=== PATIENT | female | born 1960 | race Caucasian/White ===

== ENCOUNTER 2016-09-25 14:28 | Emergency (ER) | payer SELFPAY ==
[~2016-09-25] VITALS: Ht 170.2 cm; Wt 48.1 kg
[~2016-09-25 14:28] MED LIST: NAPR500T8 PO; TRAM50TA PO
[2016-09-25 15:30] VITALS: BP 114/54
[2016-09-25] MEDS ORDERED: NAPROXEN 500 MG TABLET PO STA (15:47)
[2016-09-25] MEDS ORDERED: HYDROCODONE/APAP 7.5/325MG TABLET. PO ONE (16:00)
[2016-09-25] MEDS ORDERED: METH4TAB2 PO (16:00)
[2016-09-25] MEDS ORDERED: HYDR-971 PO (16:00)
[2016-09-25] MEDS ORDERED: CYCLOBENZAPRINE 10 MG TABLET. PO ONE (16:00)
[2016-09-25] MEDS ORDERED: CYCL10TA2 PO (16:00)
--- NOTE | 2016-09-25 16:01 | PHYS DOC ---
Past Medical History Past Medical History: Kidney Stone, Other Additional Past Medical Histor: chronic back pain, sciatica Past Surgical History: Other Additional Past Surgical Histo: nephrectomy Alcohol Use: None Drug Use: Marijuana Adult General Chief Complaint Chief Complaint: BACK PAIN OR INJURY HPI HPI Patient is a 56 year old female with history of kidney stones and chronic low back pain who presents today with chronic low back pain radiating to bilateral lower extremities, patient denies any injury. Patient denies any loss of bowel bladder function. She states she has an appointment with [facility] in one and a half months. She is currently on tramadol and Flexeril which she states is not helping much for this pain. Review of Systems Review of Systems Constitutional: Denies fever or chills [] Eyes: Denies change in visual acuity, redness, or eye pain [] GI: Denies abdominal pain, nausea, vomiting, bloody stools or diarrhea [] : Denies dysuria or hematuria [] Musculoskeletal: Bilateral low back pain radiating to bilateral lower extremities Integument: Denies rash or skin lesions [] Neurologic: Denies headache, focal weakness or sensory changes [] Endocrine: Denies polyuria or polydipsia [] Current Medications Current Medications Current Medications Medications (Trade) Dose Ordered Sig/Rj Start Time Stop Time Status Last Admin Dose Admin Acetaminophen/ Hydrocodone Bitart (Lortab 7.5/325) 2 tab 1X ONCE 09/25/16 16:00 09/25/16 16:01 Cyclobenzaprine HCl (Flexeril) 10 mg 1X ONCE 09/25/16 16:00 09/25/16 16:01 Naproxen (Naprosyn) 500 mg 1X STAT 09/25/16 15:47 09/25/16 15:51 DC Allergies Allergies Allergies Coded Allergies Type Severity Reaction Last Updated Verified No Known Drug Allergies 11/17/13 No Physical Exam Physical Exam Constitutional: Well developed, well nourished, no acute distress, non-toxic appearance. [] Abdomen: Bowel sounds normal, soft, no tenderness, no masses, no pulsatile masses. [] Skin: Warm, dry, no erythema, no rash. [] Back: Diffuse paraspinal muscles tenderness to bilateral lower lumbar region, no midline tenderness, no CVA tenderness. [] Extremities: No tenderness, no cyanosis, no clubbing, ROM intact, no edema. [] Neurologic: Alert and oriented X 3, normal motor function, normal sensory function, no focal deficits noted. [] Psychologic: Affect normal, judgement normal, mood normal. [] Current Patient Data Vital Signs Vital Signs Date Time Temp Pulse Resp B/P Pulse Ox O2 Delivery O2 Flow Rate FiO2 09/25/16 15:30 98.3 77 18 98 Room Air 98.3 EKG EKG [] Radiology/Procedures Radiology/Procedures [] Course & Med Decision Making Course & Med Decision Making Pertinent Labs and Imaging studies reviewed. (See chart for details) Patient is in the ED with exacerbation of chronic back pain. She has an appointment with the [facility] In one and a half months. She was provided instructions to make sure she follows up. She was provided return precautions and discharged in stable condition. Kostas Disclaimer Kostas Disclaimer This electronic medical record was generated, in whole or in part, using a voice recognition dictation system. Departure Departure Impression: Primary Impression: Acute exacerbation of chronic low back pain Additional Impression: Sciatica Disposition: HOME, SELF-CARE Condition: STABLE Referrals: NO PCP (PCP) follow up with [facility] as soon as you can Patient Instructions: Sciatica, [id number] Additional Instructions: You were seen for chronic sciatic/back pain. Follow-up with your own doctor as soon as he can. Come back to the ED for any worsening condition or loss of bowel bladder function. Scripts Methylprednisolone (Medrol)4 Mg Tab.ds.pk1 Pkg PO UD #1 PKG Prov:MARIUSZ OH APRN 09/25/16 Cyclobenzaprine Hcl 10 Mg Tablet1 Tab PO TID #30 TAB Prov:MARIUSZ OH APRN 09/25/16 Hydrocodone/Apap 5-325 ([place] 5-325 Tablet)1 Each Tablet1-2 Tab PO Q4-6HRS #20 TAB Prov:MARIUSZ OH APRN 09/25/16 Problem Qualifiers Additional Impression: Sciatica Laterality: bilateral Qualified Code: M54.31 - Sciatica, right side MARIUSZ OH YVAN Sep 25, 2016 16:01
== END 2016-09-25 16:12 | disposition home or self-care (01) ==
LOC: ER 14:28
DX: G89.29 Other chronic pain (principal); M54.41 Lumbago with sciatica, right side; M54.42 Lumbago with sciatica, left side; F12.10 Cannabis abuse, uncomplicated; Z87.442 Personal history of urinary calculi; Z90.5 Acquired absence of kidney
CPT/HCPCS: 99284

== ENCOUNTER 2016-10-19 14:54 | Emergency (ER) | payer SELFPAY ==
[~2016-10-19] VITALS: Ht 167.6 cm; Wt 44.0 kg
[~2016-10-19 14:54] MED LIST changes: +CYCL10TA2 PO; +HYDR-971 PO; +METH4TAB2 PO
[2016-10-19 15:01] VITALS: BP 92/60
[2016-10-19] MEDS ORDERED: methylPREDNISolone SOD SUCC PF 125 MG/2 ML VIAL. IM ONE (15:30)
[2016-10-19] MEDS ORDERED: CYCLOBENZAPRINE 10 MG TABLET. PO ONE (15:30)
[2016-10-19] MEDS ORDERED: HYDROCODONE/APAP 5/325MG TABLET. PO ONE (15:30)
[2016-10-19] MEDS ORDERED: NAPROXEN 500 MG TABLET PO ONE (15:30)
--- NOTE | 2016-10-19 15:33 | PHYS DOC ---
Past Medical History Past Medical History: Kidney Stone, Other Additional Past Medical Histor: chronic back pain, sciatica Past Surgical History: Other Additional Past Surgical Histo: nephrectomy Additional Information: 1 PPD Alcohol Use: None Drug Use: Marijuana Adult General Chief Complaint Chief Complaint: BACK PAIN OR INJURY [facility] HPI Patient is a 56 year old female presents to the emergency department stating that she has a history of chronic back pain, history of kidney stones as well as a left nephrectomy. Patient states that she was seen here on 25 September for the same back pain and discomfort in which she was provided hydrocodone Flexeril in a Medrol Dosepak. Patient states she did not take the Medrol Dosepak as prescribed. Patient states that within the last 2-3 day she started having increased back pain and discomfort. She states that she does not have insurance and cannot go to see another physician so she came to the emergency department. She states that she does have an appointment in a month with [facility]. Patient denies any trauma or injuries to the back area. She denies any loss of bowel or bladder. She states that she has numbness and tingling in the toes on the left foot. She is able to ambulate with a good steady gait. Review of Systems Review of Systems Constitutional: Denies fever or chills [] Eyes: Denies change in visual acuity, redness, or eye pain [] HENT: Denies nasal congestion or sore throat [] Respiratory: Denies cough or shortness of breath [] Cardiovascular: No additional information not addressed in HPI [] GI: Denies abdominal pain, nausea, vomiting, bloody stools or diarrhea [] : Denies dysuria or hematuria [] Musculoskeletal: back pain denies joint pain [] Integument: Denies rash or skin lesions [] Neurologic: Denies headache, focal weakness or sensory changes [] Current Medications Current Medications Current Medications Medications (Trade) Dose Ordered Sig/Rj Start Time Stop Time Status Last Admin Dose Admin Acetaminophen/ Hydrocodone Bitart (Lortab 5/325) 1 tab 1X ONCE 10/19/16 15:30 10/19/16 15:31 DC 10/19/16 15:51 1 TAB Cyclobenzaprine HCl (Flexeril) 10 mg 1X ONCE 10/19/16 15:30 10/19/16 15:31 DC 10/19/16 15:51 10 MG Methylprednisolone Sodium Succinate (Solu-Medrol 125mg Vial) 125 mg 1X ONCE 10/19/16 15:30 10/19/16 15:31 DC 10/19/16 15:52 125 MG Naproxen (Naprosyn) 500 mg 1X ONCE 10/19/16 15:30 10/19/16 15:31 DC 10/19/16 15:51 500 MG Allergies Allergies Allergies Coded Allergies Type Severity Reaction Last Updated Verified No Known Drug Allergies 11/17/13 No Physical Exam Physical Exam Constitutional: Well developed, well nourished, no acute distress, non-toxic appearance. [] HENT: Normocephalic, atraumatic, bilateral external ears normal, oropharynx moist, no oral exudates, nose normal. [] Eyes: PERRLA, EOMI, conjunctiva normal, no discharge. [] Neck: Normal range of motion, no tenderness, supple, no stridor. [] Cardiovascular:Heart rate regular rhythm, no murmur [] Lungs & Thorax: Bilateral breath sounds clear to auscultation [] Skin: Warm, dry, no erythema, no rash. [] Back: left lower back tenderness, left CVA tenderness. [] Extremities: No tenderness, no cyanosis, no clubbing, ROM intact, no edema. Patient able to lift bilateral legs without distress noted, able to cross bilateral legs without distress, peripheral pulses 2+ cap refill brisk < 2 seconds. Patient is able to ambulate with good steady gate. Neurologic: Alert and oriented X 3, normal motor function, normal sensory function, no focal deficits noted. [] Psychologic: Affect normal, judgement normal, mood normal. [] Current Patient Data Vital Signs Vital Signs Date Time Temp Pulse Resp B/P Pulse Ox O2 Delivery O2 Flow Rate FiO2 10/19/16 15:51 Room Air 10/19/16 15:01 96.6 81 18 92/60 96 96.6 Lab Values Laboratory Tests Test 10/19/16 15:30 Urine Collection Type Unknown Urine Color Yellow Urine Clarity Cloudy Urine pH 5.5 Urine Specific [place] >=1.030 Urine Protein Negativemg/dL (NEG-TRACE) Urine Glucose (UA) Negativemg/dL (NEG) Urine Ketones (Stick) 15mg/dL (NEG) Urine Blood Small (NEG) Urine Nitrite Negative (NEG) Urine Bilirubin Small (NEG) Urine Urobilinogen Dipstick 1.0mg/dL (0.2 mg/dL) Urine Leukocyte Esterase Small (NEG) Urine RBC 3-5/HPF (0-2) Urine WBC 5-10/HPF (0-4) Urine Squamous Epithelial Cells Many/LPF Urine Bacteria 0/HPF (0-FEW) Urine Mucus Marked/LPF EKG EKG [] Radiology/Procedures Radiology/Procedures [] Course & Med Decision Making Course & Med Decision Making Pertinent Labs and Imaging studies reviewed. (See chart for details) Patient is a noncompliant patient. She was provided with medications here in the emergency department for back pain. Patient does state she has an appointment next month with [facility]. Encouraged her to call [facility] and ask for the first available as well. Patient chart was positive for urinary tract infection. She'll be discharged home on Macrobid. Provide patient with some prednisone 40 mg daily for the next 5 days. We'll provide her with Flexeril and hydrocodone with recommendations to follow-up with either [facility] or with a pain management physician. Patient will be discharged home in stable condition recommended plenty of fluids and cranberry juice. Signs symptoms to return back to emergency department was provided. Dragon Disclaimer Dragon Disclaimer This electronic medical record was generated, in whole or in part, using a voice recognition dictation system. Departure Departure Impression: Primary Impression: Acute exacerbation of chronic low back pain Additional Impression: Urinary tract infection Disposition: 01 HOME, SELF-CARE Condition: STABLE Referrals: NO PCP (PCP) Patient Instructions: Chronic Back Pain, Urinary Tract Infection, [id number] Additional Instructions: Home to rest Medications as prescribed [place] and flexeril will cause drowsiness do not take if you need to be alert and oriented Warm moist packs to the back area Drink plenty of fluids such as water and cranberry juice Avoid cranberry juice cocktail, carbonated beverages, caffeine, alcohol, citrus fruits disease are considered irritants to the bladder Followup with [facility] or pain management Return to emergency department as needed for signs and symptoms that become worse. Scripts Prednisone 20 Mg [id number] Mg PO DAILY #10 TAB Prov:KELLEN ALVARES SURVEILLANCE INSPECTOR 10/19/16 Hydrocodone/Apap 5-325 ([place] 5-325 Tablet)1 Each Tablet1 Tab PO PRN Q6HRS PRN PAIN #10 TAB Prov:KELLEN ALVARES APRN 10/19/16 Cyclobenzaprine Hcl 10 Mg [id number] Mg PO TID #20 TAB Prov:KELLEN ALVARES APRN 10/19/16 Problem Qualifiers KELLEN ALVARES APRN Oct 19, 2016 15:32
[2016-10-19 15:53] LABS: BILIRUBIN,URINE SMALL (NEG); GLUCOSE,URINE NEGATIVE (NEG); NITRITE,URINE NEGATIVE (NEG); PH,URINE 5.5; PROTEIN,URINE NEGATIVE (NEG-TRACE)
[2016-10-19 16:03] LABS: BACTERIA,URINE 0 /HPF (0-FEW); SQUAMOUS EPITHELIAL CELL,UR MANY /LPF
[2016-10-19] MEDS ORDERED: HYDR-971 PO (16:22)
[2016-10-19] MEDS ORDERED: CYCL10TA2 PO (16:22)
[2016-10-19] MEDS ORDERED: PRED20TA PO (16:22)
[2016-10-19] MEDS ORDERED: NITR100C62 PO (16:37)
== END 2016-10-19 16:34 | disposition home or self-care (01) ==
LOC: ER 14:54
DX: G89.29 Other chronic pain (principal); M54.5 Low back pain; R20.0 Anesthesia of skin; N39.0 Urinary tract infection, site not specified; R20.2 Paresthesia of skin; F17.200 Nicotine dependence, unspecified, uncomplicated; F12.10 Cannabis abuse, uncomplicated; Z87.442 Personal history of urinary calculi
CPT/HCPCS: 81001; 87086; 96372; 99284; J2930

== ENCOUNTER 2017-08-23 07:44 | Inpatient (IN) | payer SELFPAY ==
[2017-08-23 08:19] LABS: BILIRUBIN,URINE NEGATIVE (NEG); CLARITY,URINE CLEAR; COLOR,URINE YELLOW; GLUCOSE,URINE NEGATIVE (NEG); NITRITE,URINE NEGATIVE (NEG); PROTEIN,URINE NEGATIVE (NEG-TRACE); UROBILINOGEN,URINE 0.2 mg/dL (0.2 mg/dL)
[2017-08-23 08:35] LABS: ADD MAN DIFF? NO
[2017-08-23] MEDS: IV NORMAL SALINE 1000ML BAG 1,000 ML IV ×2 (08:35→12:56)
[2017-08-23 08:41] LABS: BACTERIA,URINE 0 /HPF (0-FEW); RBC,URINE 0 /HPF (0-2); SQUAMOUS EPITHELIAL CELL,UR FEW /LPF; WBC,URINE OCC /HPF (0-4)
[2017-08-23 08:47] LABS: BASO % 0 % (0-3); EOS % 0 % (0-3); HEMOGLOBIN 14.3 g/dL (12.0-15.5); LYMPH # 0.8 x10^3/uL (1.0-4.8); LYMPH % 14 % (24-48); MEAN CORPUSCULAR HEMOGLOBIN 29 pg (25-35); MEAN CORPUSCULAR HGB CONC 34 g/dL (31-37); MEAN CORPUSCULAR VOLUME 86 fL (79-100); MONO # 0.2 x10^3/uL (0.0-1.1); MONO % 4 % (0-9); NEUT # 4.6 x10^3uL (1.8-7.7); NEUT % 81 % (31-73); PLATELET COUNT 109 x10^3/uL (140-400); RED BLOOD COUNT 4.88 x10^6/uL (3.50-5.40); RED CELL DISTRIBUTION WIDTH 14.9 % (11.5-14.5); WHITE BLOOD COUNT 5.7 x10^3/uL (4.0-11.0)
[2017-08-23 08:58] LABS: INR 0.9 (0.8-1.1)
[2017-08-23 09:05] LABS: D-DIMER 0.37 ug/mlFEU (0.00-0.50)
[2017-08-23 09:09] LABS: ANION GAP 10 (6-14); BLOOD UREA NITROGEN 11 mg/dL (7-20); BUN/CREATININE RATIO 12 (6-20); CALCIUM 8.9 mg/dL (8.5-10.1); CARBON DIOXIDE 27 mmol/L (21-32); CHLORIDE 103 mmol/L (98-107); CREATININE 0.9 mg/dL (0.6-1.0); GFR 64.5; GLUCOSE 99 mg/dL (70-99); POTASSIUM 4.2 mmol/L (3.5-5.1); SODIUM 140 mmol/L (136-145)
[2017-08-23 09:14] LABS: ALBUMIN 3.4 g/dL (3.4-5.0); ALK PHOS 86 U/L (46-116); ALT (SGPT) 14 U/L (14-59); AST (SGOT) 16 U/L (15-37); LIPASE 69 U/L (73-393); MAGNESIUM 1.8 mg/dL (1.8-2.4); TOTAL BILIRUBIN 0.2 mg/dL (0.2-1.0); TOTAL PROTEIN 6.8 g/dL (6.4-8.2)
[2017-08-23 09:15] LABS: THYROID STIM HORMONE (TSH) 1.744 uIU/mL (0.358-3.74)
[2017-08-23 09:21] LABS: TROPONINI < 0.017 ng/mL (0.000-0.055)
[2017-08-23 09:22] LABS: CKMB MASS < 0.5 ng/mL (0.0-3.6); CREATINE KINASE 53 U/L (26-192)
[2017-08-23 09:22] LABS: NT-PRO BNP 431 pg/mL (0-124)
[2017-08-23 09:39] LABS: AMPHETAMINE/METHAMPHETAMINE NEG (NEG); BARBITURATES NEG (NEG); BENZODIAZEPINES POS (NEG); CANNABINOIDS NEG (NEG); COCAINE NEG (NEG); ETHANOL, URINE NEG (NEG); METHADONE POS (NEG); OPIATES NEG (NEG); PHENCYCLIDINE NEG (NEG)
[2017-08-23] MEDS: DEXAMETHASONE SOD PHOS 20 MG/5 ML VIAL. IV (10:15)
[2017-08-23] MEDS ORDERED: ONDANSETRON PF 4 MG/2 ML VIAL. IV (10:15)
[2017-08-23] MEDS ORDERED: BENZONATATE 100 MG CAPSULE. PO (10:15)
[2017-08-23] MEDS: clonazePAM 0.5 MG TABLET PO ×2 (10:18→15:50)
[2017-08-23] MEDS ORDERED: PNEUMOCOCCAL VAX SCREEN BY RX. MC (12:00)
[2017-08-23] MEDS ORDERED: NICOTINE POLACRILEX 2MG GUM PACKAGE of 12. BC (12:00)
[2017-08-23] MEDS ORDERED: INFLUENZA VAX SCREEN BY RX. MC (12:00)
[2017-08-23] MEDS: IPRATRPIUM/ALBUTEROL 0.5/2.5MG 3 ML NEBU. NEB ×3 (12:48→19:59)
[2017-08-23] MEDS: NICOTINE 21MG PATCH. TD (13:12)
[2017-08-23] MEDS: FLU VACC QS2017-18 (36MOS+)/PF 0.5 ML SYRINGE. VAX IM (13:17)
[2017-08-23] MEDS: PNEUMOC CONJ VACC 23-VALENT 0.5 ML VIAL. VAX IM (13:19)
[2017-08-23] MEDS: IV DEXTROSE 5 %-0.45 % NACL 1,000 ML IV (15:00)
[2017-08-23] MEDS: traZODone 100 MG TABLET. PO (20:06)
[2017-08-23] MEDS: ACETAMINOPHEN 325 MG TABLET. PO (20:06)
[2017-08-23] MEDS ORDERED: clonazePAM 0.5 MG TABLET PO (21:00)
[2017-08-24] MEDS: IV DEXTROSE 5 %-0.45 % NACL 1,000 ML IV ×3 (02:20→20:56)
[2017-08-24 05:25] LABS: ADD MAN DIFF? NO
[2017-08-24 05:33] LABS: BASO % 1 % (0-3); EOS % 0 % (0-3); HEMATOCRIT 42.7 % (36.0-47.0); HEMOGLOBIN 13.9 g/dL (12.0-15.5); LYMPH # 1.8 x10^3/uL (1.0-4.8); LYMPH % 44 % (24-48); MEAN CORPUSCULAR HEMOGLOBIN 28 pg (25-35); MEAN CORPUSCULAR HGB CONC 33 g/dL (31-37); MEAN CORPUSCULAR VOLUME 87 fL (79-100); MONO # 0.3 x10^3/uL (0.0-1.1); MONO % 6 % (0-9); NEUT % 49 % (31-73); PLATELET COUNT 107 x10^3/uL (140-400); WHITE BLOOD COUNT 4.1 x10^3/uL (4.0-11.0)
[2017-08-24] MEDS: ONDANSETRON PF 4 MG/2 ML VIAL. IV (05:52)
[2017-08-24] MEDS: METHADONE 5 MG/5 ML SOLUTION. PO (06:01)
[2017-08-24 06:06] LABS: ALBUMIN 2.8 g/dL (3.4-5.0); ALBUMIN/GLOBULIN RATIO 0.8 (1.0-1.7); ALK PHOS 66 U/L (46-116); ALT (SGPT) 13 U/L (14-59); ANION GAP 6 (6-14); AST (SGOT) 18 U/L (15-37); BLOOD UREA NITROGEN 9 mg/dL (7-20); BUN/CREATININE RATIO 10 (6-20); CALCIUM 8.3 mg/dL (8.5-10.1); CARBON DIOXIDE 25 mmol/L (21-32); CHLORIDE 106 mmol/L (98-107); CREATININE 0.9 mg/dL (0.6-1.0); GFR 64.5; GLUCOSE 101 mg/dL (70-99); POTASSIUM 4.1 mmol/L (3.5-5.1); SODIUM 137 mmol/L (136-145); TOTAL BILIRUBIN 0.1 mg/dL (0.2-1.0); TOTAL PROTEIN 6.4 g/dL (6.4-8.2)
[2017-08-24] MEDS: IPRATRPIUM/ALBUTEROL 0.5/2.5MG 3 ML NEBU. NEB (08:00)
[2017-08-24] MEDS: clonazePAM 0.5 MG TABLET PO ×2 (09:03→15:48)
[2017-08-24] MEDS: NICOTINE 21MG PATCH. TD (09:04)
[2017-08-24] MEDS: OLANZapine 2.5 MG TABLET PO (09:51)
[2017-08-24] MEDS: METOCLOPRAMIDE HCL 10 MG/2 ML VIAL. IV (09:51)
[2017-08-24] MEDS ORDERED: CONTRAST GIVEN MC (10:15)
[2017-08-24] MEDS: IOHEXOL 300 MG/ML 100ML VIAL. IV (10:17)
[2017-08-24 10:42] LABS: URIC ACID 4.4 mg/dL (2.6-6.0)
[2017-08-24 10:42] LABS: LACTATE DEHYDROGENASE 136 U/L (81-234)
[2017-08-24 10:51] LABS: C-REACTIVE PROTEIN < 0.5 mg/L (0-3.3)
[2017-08-24 11:43] LABS: SEDIMENTATION RATE 3 (0-25)
[2017-08-24 13:38] LABS: VITAMIN-B12 579 pg/mL (247-911)
[2017-08-24] MEDS: BARIUM SULFATE 40% (APPLE) 148 GM PWD. PO (13:45)
[2017-08-24 15:48] LABS: AMMONIA 30 mcmol/L (11-34)
[2017-08-24] MEDS: ERGOCALCIFEROL (VITAMIN D2) 50,000 UNIT CAPSULE. PO (18:27)
[2017-08-24 19:13] LABS: HCV ANTIBODY >11.0 s/co ratio (0.0-0.9); HEP A IGM ABDY Negative (Negative); HEP B SURFACE AG Negative (Negative)
[2017-08-24 20:11] LABS: AFPT MARKER 1.7 ng/mL (0.0-8.3)
[2017-08-24] MEDS: CALCIUM CARBONATE 500 MG TABLET PO (20:58)
[2017-08-24] MEDS: traZODone 100 MG TABLET. PO (20:58)
[2017-08-24] MEDS ORDERED: MORPHINE SULFATE 4 MG/ML DISP.SYRIN. IV (21:15)
[2017-08-25] MEDS: IV DEXTROSE 5 %-0.45 % NACL 1,000 ML IV ×2 (01:31→13:15)
[2017-08-25] MEDS: MORPHINE SULFATE 2 MG/ML DISP.SYRIN. IV ×2 (05:29→07:31)
[2017-08-25] MEDS: METHADONE 5 MG/5 ML SOLUTION. PO (10:36)
[2017-08-25] MEDS: OLANZapine 2.5 MG TABLET PO (10:45)
[2017-08-25] MEDS: clonazePAM 0.5 MG TABLET PO ×2 (10:45→14:46)
[2017-08-25] MEDS: CALCIUM CARBONATE 500 MG TABLET PO ×2 (10:45→20:56)
[2017-08-25] MEDS: NICOTINE 21MG PATCH. TD (10:46)
[2017-08-25] MEDS: traZODone 100 MG TABLET. PO (20:57)
[2017-08-25] MEDS: METOCLOPRAMIDE HCL 10 MG/2 ML VIAL. IV (21:04)
[2017-08-26] MEDS: METHADONE 5 MG/5 ML SOLUTION. PO ×2 (06:00→10:43)
[2017-08-26] MEDS: IV DEXTROSE 5 %-0.45 % NACL 1,000 ML IV ×3 (06:45→23:00)
[2017-08-26] MEDS: OLANZapine 2.5 MG TABLET PO ×2 (09:00→10:45)
[2017-08-26] MEDS: NICOTINE 21MG PATCH. TD (10:41)
[2017-08-26] MEDS: METOCLOPRAMIDE HCL 10 MG/2 ML VIAL. IV ×2 (10:44→16:37)
[2017-08-26] MEDS: clonazePAM 0.5 MG TABLET PO ×2 (10:45→16:29)
[2017-08-26] MEDS: CALCIUM CARBONATE 500 MG TABLET PO ×2 (10:46→20:22)
[2017-08-26] MEDS: ONDANSETRON PF 4 MG/2 ML VIAL. IV (12:38)
[2017-08-26] MEDS: ACETAMINOPHEN 325 MG TABLET. PO (17:58)
[2017-08-26] MEDS: traZODone 100 MG TABLET. PO (20:22)
[2017-08-27] MEDS: IV DEXTROSE 5 %-0.45 % NACL 1,000 ML IV ×2 (03:45→14:51)
[2017-08-27] MEDS ORDERED: MORPHINE SULFATE 2 MG/ML DISP.SYRIN. IM (09:45)
[2017-08-27] MEDS: SINCALIDE 1 MCG in IV NORMAL SALINE 50ML 30 ML IV (10:12)
[2017-08-27] MEDS: clonazePAM 0.5 MG TABLET PO ×2 (11:44→16:40)
[2017-08-27] MEDS: METHADONE 5 MG/5 ML SOLUTION. PO (11:44)
[2017-08-27] MEDS: CALCIUM CARBONATE 500 MG TABLET PO ×2 (11:44→20:19)
[2017-08-27] MEDS: NICOTINE 21MG PATCH. TD (11:45)
[2017-08-27] MEDS: OLANZapine 2.5 MG TABLET PO (11:48)
[2017-08-27 12:16] LABS: CEA 6.9 ng/mL (0.0-4.7)
[2017-08-27 12:16] LABS: CA 19-9 1 U/mL (0-35)
[2017-08-27] MEDS: ONDANSETRON PF 4 MG/2 ML VIAL. IV (12:27)
[2017-08-27] MEDS: CITALOPRAM 10 MG TABLET. PO (14:52)
[2017-08-27] MEDS: PANTOPRAZOLE 40 MG TABLET.DR. PO (16:40)
[2017-08-27] MEDS: ACETAMINOPHEN 325 MG TABLET. PO (18:33)
[2017-08-27] MEDS: traZODone 100 MG TABLET. PO (20:19)
[2017-08-28] MEDS: IV DEXTROSE 5 %-0.45 % NACL 1,000 ML IV ×2 (01:35→14:42)
[2017-08-28] MEDS: METHADONE 5 MG/5 ML SOLUTION. PO (05:42)
[2017-08-28] MEDS: ONDANSETRON PF 4 MG/2 ML VIAL. IV (08:00)
[2017-08-28] MEDS: PANTOPRAZOLE 40 MG TABLET.DR. PO (08:09)
[2017-08-28] MEDS: clonazePAM 0.5 MG TABLET PO ×2 (08:09→15:49)
[2017-08-28] MEDS: CALCIUM CARBONATE 500 MG TABLET PO ×2 (08:09→20:47)
[2017-08-28] MEDS: NICOTINE 21MG PATCH. TD (08:09)
[2017-08-28] MEDS: OLANZapine 2.5 MG TABLET PO (08:14)
[2017-08-28] MEDS: CITALOPRAM 10 MG TABLET. PO (08:14)
[2017-08-28] MEDS ORDERED: CONTRAST GIVEN MC (09:30)
[2017-08-28] MEDS: IOHEXOL 300 MG/ML 100ML VIAL. IV (10:23)
[2017-08-28] MEDS: METOCLOPRAMIDE HCL 10 MG/2 ML VIAL. IV (12:05)
[2017-08-28] MEDS: PROCHLORPERAZINE 10 MG/2 ML VIAL. IV (14:42)
[2017-08-28] MEDS: traZODone 100 MG TABLET. PO (20:47)
[2017-08-29] MEDS: IV DEXTROSE 5 %-0.45 % NACL 1,000 ML IV ×2 (01:56→11:08)
[2017-08-29] MEDS: ACETAMINOPHEN 325 MG TABLET. PO (01:56)
[2017-08-29 05:25] LABS: ADD MAN DIFF? NO
[2017-08-29] MEDS: METHADONE 5 MG/5 ML SOLUTION. PO (05:48)
[2017-08-29 05:54] LABS: ANION GAP 2 (6-14); BLOOD UREA NITROGEN 14 mg/dL (7-20); CALCIUM 8.7 mg/dL (8.5-10.1); CARBON DIOXIDE 36 mmol/L (21-32); CHLORIDE 104 mmol/L (98-107); CREATININE 1.2 mg/dL (0.6-1.0); GFR 46.3; GLUCOSE 97 mg/dL (70-99); SODIUM 142 mmol/L (136-145)
[2017-08-29] MEDS: METOCLOPRAMIDE HCL 10 MG/2 ML VIAL. IV (06:00)
[2017-08-29 06:12] LABS: BASO % 0 % (0-3); EOS # 0.1 x10^3/uL (0.0-0.7); EOS % 1 % (0-3); HEMOGLOBIN 14.4 g/dL (12.0-15.5); LYMPH # 1.6 x10^3/uL (1.0-4.8); LYMPH % 18 % (24-48); MEAN CORPUSCULAR HEMOGLOBIN 29 pg (25-35); MEAN CORPUSCULAR HGB CONC 33 g/dL (31-37); MEAN CORPUSCULAR VOLUME 87 fL (79-100); MONO # 0.6 x10^3/uL (0.0-1.1); MONO % 6 % (0-9); NEUT # 6.8 x10^3uL (1.8-7.7); NEUT % 74 % (31-73); PLATELET COUNT 182 x10^3/uL (140-400); RED BLOOD COUNT 5.05 x10^6/uL (3.50-5.40); RED CELL DISTRIBUTION WIDTH 14.7 % (11.5-14.5); WHITE BLOOD COUNT 9.1 x10^3/uL (4.0-11.0)
[2017-08-29] MEDS: NICOTINE 21MG PATCH. TD (07:51)
[2017-08-29] MEDS: CALCIUM CARBONATE 500 MG TABLET PO (07:51)
[2017-08-29] MEDS: PROCHLORPERAZINE 10 MG/2 ML VIAL. IV (07:51)
[2017-08-29] MEDS: clonazePAM 0.5 MG TABLET PO (07:51)
[2017-08-29] MEDS: PANTOPRAZOLE 40 MG TABLET.DR. PO (07:51)
[2017-08-29] MEDS: OLANZapine 2.5 MG TABLET PO (07:55)
[2017-08-29] MEDS: CITALOPRAM 10 MG TABLET. PO (07:55)
[2017-08-31] MEDS ORDERED: ERGOCALCIFEROL (VITAMIN D2) 50,000 UNIT CAPSULE. PO (09:00)
== END 2017-08-29 15:59 | disposition home or self-care (01) | DRG 444 ==
LOC: ER 07:44 → 5 SOUTH 09:56
DX: K83.8 Other specified diseases of biliary tract (principal); E43 Unspecified severe protein-calorie malnutrition; K74.60 Unspecified cirrhosis of liver; Z68.1 Body mass index [BMI] 19.9 or less, adult; R62.7 Adult failure to thrive; B18.2 Chronic viral hepatitis C; E55.9 Vitamin D deficiency, unspecified; F17.210 Nicotine dependence, cigarettes, uncomplicated; F32.9 Major depressive disorder, single episode, unspecified; F41.9 Anxiety disorder, unspecified; G43.909 Migraine, unspecified, not intractable, without status migrainosus; G89.29 Other chronic pain; M54.40 Lumbago with sciatica, unspecified side; Z87.442 Personal history of urinary calculi; F11.90 Opioid use, unspecified, uncomplicated; Z90.5 Acquired absence of kidney; R13.10 Dysphagia, unspecified; R55 Syncope and collapse
CPT/HCPCS: 36415; 70450; 71045; 71260; 72141; 72148; 74177; 74181; 74230; 76705; 78226; 78264; 80048; 80053; 80074; 80307; 81001; 82105; 82140; 82306; 82378; 82533; 82553; 82607; 83615; 83690; 83735; 83880; 84443; 84484; 84550; 85025; 85379; 85610; 85651; 86140; 86301; 87086; 90686; 90732; 92526-GN; 92610-GN; 92611-GN; 93005; 94640; 94760; 96360; 96361; 96374; 96375; 97110-GP; 97116-GP; 97161-GP; 97166-GO; 97530-GO; 97535-GO; 99285; 99285-25; 99406; A9537; A9541; J0780; J2270; J2405; J2765; J2805; J7030; J7620; Q9967

== ENCOUNTER 2017-11-02 20:16 | Emergency (ER) | payer SELFPAY ==
[2017-11-02] MEDS: ALPRAZolam 0.5 MG TABLET PO (21:28)
[2017-11-02] MEDS: diphenhydrAMINE HCL 25 MG CAPSULE PO (21:28)
== END 2017-11-02 22:22 | disposition home or self-care (01) ==
LOC: ER 22:22
DX: F41.9 Anxiety disorder, unspecified (principal); G89.29 Other chronic pain; F15.10 Other stimulant abuse, uncomplicated; Z87.442 Personal history of urinary calculi; Z90.5 Acquired absence of kidney; Z86.19 Personal history of other infectious and parasitic diseases; Z79.899 Other long term (current) drug therapy
CPT/HCPCS: 71045; 93005; 99284-25; Q0163

== ENCOUNTER 2021-01-12 17:02 | Emergency (ER) | payer SELFPAY ==
[~2021-01-12] VITALS: Ht 170.2 cm; Wt 72.0 kg
[~2021-01-12 17:02] MED LIST changes: +ALPR1TAB2 PO; +CLON0.5T PO; +HYDR-3164 PO; -HYDR-971 PO; +METH10TA2 PO; +NITR100C62 PO; +PRED20TA PO; +TRAZ-123 PO
[2021-01-12] MEDS ORDERED: ONDANSETRON PF 4 MG/2 ML VIAL. IVP ONE ×2 (18:45→22:30)
[2021-01-12 18:52] LABS: BILIRUBIN,URINE MODERATE (NEG); CLARITY,URINE CLEAR; COLOR,URINE AMBER; NITRITE,URINE NEGATIVE (NEG); PROTEIN,URINE 100 mg/dL (NEG-TRACE)
[2021-01-12 18:57] LABS: BASO # 0.1 x10^3/uL (0.0-0.2); BASO % 1 % (0-3); EOS % 0 % (0-3); HEMATOCRIT 42.2 % (36.0-47.0); HEMOGLOBIN 14.2 g/dL (12.0-15.5); LYMPH # 0.7 x10^3/uL (1.0-4.8); LYMPH % 7 % (24-48); MEAN CORPUSCULAR HEMOGLOBIN 31 pg (25-35); MEAN CORPUSCULAR HGB CONC 34 g/dL (31-37); MEAN CORPUSCULAR VOLUME 92 fL (79-100); MONO # 0.4 x10^3/uL (0.0-1.1); MONO % 4 % (0-9); NEUT # 9.2 x10^3/uL (1.8-7.7); NEUT % 88 % (31-73); PLATELET COUNT 191 x10^3/uL (140-400); RED BLOOD COUNT 4.58 x10^6/uL (3.50-5.40); RED CELL DISTRIBUTION WIDTH 14.4 % (11.5-14.5); WHITE BLOOD COUNT 10.5 x10^3/uL (4.0-11.0)
[2021-01-12 19:00] LABS: BARBITURATES NEG (NEG); BENZODIAZEPINES NEG (NEG); CANNABINOIDS NEG (NEG); COCAINE NEG (NEG); METHADONE POS (NEG); OPIATES NEG (NEG); PHENCYCLIDINE NEG (NEG)
[2021-01-12] MEDS ORDERED: MULTIVIT INFUSN,ADULT 4,VIT K 10 ML, THIAMINE INJ 100 MG, FOLIC ACID INJ 1 MG in IV NOR... IV ONE (19:00)
[2021-01-12 19:01] LABS: AMPHETAMINE/METHAMPHETAMINE NEG (NEG)
[2021-01-12 19:03] LABS: BACTERIA,URINE MODERATE /HPF (0-FEW)
[2021-01-12 19:06] LABS: CALCIUM 8.8 mg/dL (8.5-10.1); GFR 56.4; POTASSIUM 3.9 mmol/L (3.5-5.1)
[2021-01-12 19:11] LABS: ALBUMIN 3.7 g/dL (3.4-5.0); ALBUMIN/GLOBULIN RATIO 0.9 (1.0-1.7); TOTAL BILIRUBIN 0.4 mg/dL (0.2-1.0); TOTAL PROTEIN 7.7 g/dL (6.4-8.2)
[2021-01-12 19:12] LABS: ACETAMIN < 2 mcg/ml (10-30); ETHANOL < 10 mg/dL (0-10)
[2021-01-12] MEDS ORDERED: IOHEXOL 300 MG/ML 100ML VIAL. IV ONE (19:15)
[2021-01-12 20:02] VITALS: BP 136/71
--- NOTE | 2021-01-12 21:24 | RAD ---
CT abdomen pelvis with contrast. HISTORY: Abdominal pain, bloating CT abdomen pelvis was done using 75 mL Omnipaque 300 contrast. There is atelectasis in the lung bases . There is no pleural effusion. Patient has mildly dilated bile ducts. There is gas in the bile ducts which can be seen with its previous sphincterotomy. There is no calcified gallstone in the gallblad anurag. Common duct is dilated. There is a possible filling defect in the common duct, a common duct sto ne is possible. Spleen is unremarkable. The patient's had a left nephrectomy. There is a left upper q uadrant nodule medial to the spleen, an adrenal adenoma is possible, the pattern is unchanged from an old study from August 2017. Right adrenal gland is normal. There is no mass or hydronephrosis in t he right kidney. There is no adenopathy. There is mild nonspecific small bowel dilatation without a d efinite obstruction, there one or 2 mildly dilated small bowel loops in the left abdomen. Terminal il eum is nondilated. Appendix is not identified. Uterus and ovaries are unremarkable. There is no free fluid in the pelvis or abdomen. IMPRESSION: 1. Dilated bile duct. 2. Possible bile duct stone. 3. Left upper quadrants soft tissue density lesion possibly adrenal adenoma, the pattern is not typic al for a accessory spleen, pattern is unchanged from the study from August 2017. 4. 2 mildly dilated nonspecific small bowel loops without definite obstruction. PQRS Compliance Statement: One or more of the following individualized dose reduction techniques were utilized for this examinat ion: 1. Automated exposure control 2. Adjustment of the mA and/or kV according to patient size 3. Use of iterative reconstruction technique Electronically signed by: Zohaib Jade MD (01/12/2021 9:22 PM) [facility]
[2021-01-12] MEDS ORDERED: ONDA4TAB12 PO (21:43)
--- NOTE | 2021-01-12 21:44 | PHYS DOC ---
Past Medical History Past Medical History: Anxiety, Kidney Stone, Sciatica, Other Additional Past Medical Histor: MIGRAINES, HEP C, H/O OPIATE ABUSE Past Surgical History: Appendectomy, Other Additional Past Surgical Histo: L NEPHRECTOMY Smoking Status: Current Every Day Smoker Additional Information: 1 PK/DAY Alcohol Use: None Drug Use: Methadone Social History Narrative: H/O OPIATE ABUSE General Adult EDM: Chief Complaint: NAUSEA/VOMITING/DIARRHEA HPI: HPI: Patient is a 61 year old female with a history of kidney stones, alcohol abuse, sciatica, hepatitis C, who presents to the ED today complaining of nausea and vomiting for the last 6 months. Patient states she was seen at [facility] 3 days ago for the same complaint and "they did nothing for me. She reports she received IV fluids and lab work was done. She reports her last alcohol intake was 4 days ago. Patient is also complaining of a 8 out of 10 epigastric abdominal pain intermittently for 4 days. Review of Systems: Review of Systems: Constitutional: Denies fever or chills. [] Eyes: Denies change in visual acuity. [] HENT: Denies nasal congestion or sore throat. [] Respiratory: Denies cough or shortness of breath. [] Cardiovascular: Denies chest pain or edema. [] GI: Reports epigastric abdominal pain, nausea vomiting, denies bloody stools or diarrhea. [] : Denies dysuria. [] Musculoskeletal: Denies back pain or joint pain. [] Integument: Denies rash. [] Neurologic: Denies headache, focal weakness or sensory changes. [] Psychiatric: Reports alcohol use Heart Score: C/O Chest Pain: N/A Risk Factors: Risk Factors: DM, Current or recent (<one month) smoker, HTN, HLP, family history of CAD, obesity. Risk Scores: Score 0 - 3: 2.5% MACE over next 6 weeks - Discharge Home Score 4 - 6: 20.3% MACE over next 6 weeks - Admit for Clinical Observation Score 7 - 10: 72.7% MACE over next 6 weeks - Early Invasive Strategies Current Medications: Current Medications Medications (Trade) Dose Ordered Sig/Rj Start Time Stop Time Status Last Admin Dose Admin Iohexol (Omnipaque 300 Mg/ml) 75 ml 1X ONCE 01/12/21 19:15 01/12/21 19:16 DC 01/12/21 19:15 75 ML Multivitamins 10 ml/Thiamine HCl 100 mg/Folic Acid 1 mg/Sodium Chloride 1,011.2 ml @ 1,000.088 mls/hr 1X ONCE 01/12/21 19:00 01/12/21 20:00 DC 01/12/21 20:40 1,000.088 MLS/HR Ondansetron HCl (Zofran) 4 mg 1X ONCE 01/12/21 18:45 01/12/21 18:55 DC 01/12/21 20:40 4 MG Allergies: Allergies: Allergies Coded Allergies Type Severity Reaction Last Updated Verified No Known Drug Allergies 01/12/21 No Physical Exam: PE: Constitutional: Well developed, well nourished, no acute distress, non-toxic appearance. [] HENT: Normocephalic, atraumatic, bilateral external ears normal, oropharynx moist, no oral exudates, nose normal. [] Eyes: PERRLA, EOMI, conjunctiva normal, no discharge. [] Neck: Normal range of motion, no tenderness, supple, no stridor. [] Cardiovascular:Heart rate regular rhythm, no murmur [] Lungs & Thorax: Bilateral breath sounds clear to auscultation [] Abdomen: Bowel sounds normal, soft, slight epigastric tenderness, no right upper quadrant tenderness, negative Monsivais sign, no right lower quadrant tenderness, no masses, no pulsatile masses. [] Skin: Warm, dry, no erythema, no rash. [] Back: No tenderness, no CVA tenderness. [] Extremities: No tenderness, no cyanosis, no clubbing, ROM intact, no edema. [] Neurologic: Alert and oriented X 3, normal motor function, normal sensory function, no focal deficits noted. [] Psychologic: Affect normal, judgement normal, mood normal. [] Current Patient Data: Labs: Laboratory Tests Test 01/12/21 18:30 01/12/21 18:50 Urine Collection Type Unknown Urine Color [place] Urine Clarity Clear Urine pH 6.0 (<5.0-8.0) Urine Specific [place] >=1.030 (1.000-1.030) Urine Protein 100 mg/dL (NEG-TRACE) Urine Glucose (UA) Negative mg/dL (NEG) Urine Ketones (Stick) >=80 mg/dL (NEG) Urine Blood Small (NEG) Urine Nitrite Negative (NEG) Urine Bilirubin Moderate (NEG) Urine Urobilinogen Dipstick 1.0 mg/dL (0.2 mg/dL) Urine Leukocyte Esterase Trace (NEG) Urine RBC 3-5 /HPF (0-2) Urine WBC 5-10 /HPF (0-4) Urine Squamous Epithelial Cells Many /LPF Urine Bacteria Moderate /HPF (0-FEW) Urine Mucus Marked /LPF Urine Opiates Screen Neg (NEG) Urine Methadone Screen Pos (NEG) Urine Barbiturates Neg (NEG) Urine Phencyclidine Screen Neg (NEG) Urine Amphetamine/Methamphetamine Neg (NEG) Urine Benzodiazepines Screen Neg (NEG) Urine Cocaine Screen Neg (NEG) Urine Cannabinoids Screen Neg (NEG) Urine Ethyl Alcohol Neg (NEG) White Blood Count 10.5 x10^3/uL (4.0-11.0) Red Blood Count 4.58 x10^6/uL (3.50-5.40) Hemoglobin 14.2 g/dL (12.0-15.5) Hematocrit 42.2 % (36.0-47.0) Mean Corpuscular Volume 92 fL (79-100) Mean Corpuscular Hemoglobin 31 pg (25-35) Mean Corpuscular Hemoglobin Concent 34 g/dL (31-37) Red Cell Distribution Width 14.4 % (11.5-14.5) Platelet Count 191 x10^3/uL (140-400) Neutrophils (%) (Auto) 88 % (31-73) H Lymphocytes (%) (Auto) 7 % (24-48) L Monocytes (%) (Auto) 4 % (0-9) Eosinophils (%) (Auto) 0 % (0-3) Basophils (%) (Auto) 1 % (0-3) Neutrophils # (Auto) 9.2 x10^3/uL (1.8-7.7) H Lymphocytes # (Auto) 0.7 x10^3/uL (1.0-4.8) L Monocytes # (Auto) 0.4 x10^3/uL (0.0-1.1) Eosinophils # (Auto) 0.0 x10^3/uL (0.0-0.7) Basophils # (Auto) 0.1 x10^3/uL (0.0-0.2) Sodium Level 141 mmol/L (136-145) Potassium Level 3.9 mmol/L (3.5-5.1) Chloride Level 102 mmol/L (98-107) Carbon Dioxide Level 26 mmol/L (21-32) Anion Gap 13 (6-14) Blood Urea Nitrogen 17 mg/dL (7-20) Creatinine 1.0 mg/dL (0.6-1.0) Estimated GFR (Cockcroft-Gault) 56.4 BUN/Creatinine Ratio 17 (6-20) Glucose Level 123 mg/dL (70-99) H Calcium Level 8.8 mg/dL (8.5-10.1) Total Bilirubin 0.4 mg/dL (0.2-1.0) Aspartate Amino Transferase (AST) 24 U/L (15-37) Alanine Aminotransferase (ALT) 29 U/L (14-59) Alkaline Phosphatase 83 U/L (46-116) Total Protein 7.7 g/dL (6.4-8.2) Albumin 3.7 g/dL (3.4-5.0) Albumin/Globulin Ratio 0.9 (1.0-1.7) L Lipase 38 U/L (73-393) L Acetaminophen Level < 2 mcg/ml (10-30) L Acetaminophen Last Dose Date Unknown Acetaminophen Last Dose Time Unknown Ethyl Alcohol Level < 10 mg/dL (0-10) Laboratory Tests 01/12/21 18:50 Laboratory Tests 01/12/21 18:50 Vital Signs: Vital Signs Date Time Temp Pulse Resp B/P (MAP) Pulse Ox O2 Delivery O2 Flow Rate FiO2 01/12/21 18:55 97.6 76 20 158/91 (113) 98 Room Air 97.6 EKG: EKG: [] Radiology/Procedures: Radiology/Procedures: []PROCEDURE: CT ABD PELV W/ IV CONTRST ONLY CT abdomen pelvis with contrast. HISTORY: Abdominal pain, bloating CT abdomen pelvis was done using 75 mL Omnipaque 300 contrast. There is atelectasis in the lung bases. There is no pleural effusion. Patient has mildly dilated bile ducts. There is gas in the bile ducts which can be seen with its previous sphincterotomy. There is no calcified gallstone in the gallbladder. Common duct is dilated. There is a possible filling defect in the common duct, a common duct stone is possible. Spleen is unremarkable. The patient's had a left nephrectomy. There is a left upper quadrant nodule medial to the spleen, an adrenal adenoma is possible, the pattern is unchanged from an old study from August 2017. Right adrenal gland is normal. There is no mass or hydronephrosis in the right kidney. There is no adenopathy. There is mild nonspecific small bowel dilatation without a definite obstruction, there one or 2 mildly dilated small bowel loops in the left abdomen. Terminal ileum is nondilated. Appendix is not identified. Uterus and ovaries are unremarkable. There is no free fluid in the pelvis or abdomen. IMPRESSION: 1. Dilated bile duct. 2. Possible bile duct stone. 3. Left upper quadrants soft tissue density lesion possibly adrenal adenoma, the pattern is not typical for a accessory spleen, pattern is unchanged from the study from August 2017. 4. 2 mildly dilated nonspecific small bowel loops without definite obstruction. PQRS Compliance Statement: One or more of the following individualized dose reduction techniques were utilized for this examination: 1. Automated exposure control 2. Adjustment of the mA and/or kV according to patient size 3. Use of iterative reconstruction technique Electronically signed by: Zohaib Jade MD (01/12/2021 9:22 PM) [facility] DICTATED and SIGNED BY: ZOHAIB JADE MD DATE: 01/12/[id number] 0 Course & Med Decision Making: Course & Med Decision Making Pertinent Labs and Imaging studies reviewed. (See chart for details) This is a 61-year-old female patient presented to the ED today complaining of nausea, vomiting for 6 months. Also complaining of epigastric abdominal pain. Patient also reports history of alcohol abuse. Last alcohol intake was 4 days ago. Reports was seen at [facility] a couple days ago for the same complaint. CBC, CMP, lipase with no acute findings. UA is contaminated, we will culture the specimen, UDS positive for methadone which patient did not report to me CT of the abdomen and pelvis noted for Possible bile duct stone with dilated bile duct. Also noted for adrenal lesion that was present in 2018. Also noted for 2 mildly dilated nonspecific small bowels without definite obstruction. Results were communicated to patient. Provided general surgeon for follow-up. Discharged home You were evaluated in the emergency room and noted to have gallstones. Please contact the provided general surgeon and set up a follow-up appointment. Take the prescribed nausea and vomiting medicine as ordered. You also have a lesion on your kidney, follow-up with your primary care doctor or switchboard operator helper for this. Kostas Disclaimer: Kostas Disclaimer: This electronic medical record was generated, in whole or in part, using a voice recognition dictation system. Departure Departure Impression: Primary Impression: Gall stone Qualified Codes: K80.20 - Calculus of gallbladder without cholecystitis without obstruction Additional Impression: Nausea & vomiting Qualified Codes: R11.2 - Nausea with vomiting, unspecified Disposition: HOME / SELF CARE / HOMELESS Condition: STABLE Referrals: NO PCP (PCP) MICHAEL URIAS MD follow up in one week Patient Instructions: Cholelithiasis, [id number], Nausea and Vomiting, [id number] Additional Instructions: You were evaluated in the emergency room and noted to have gallstones. Please contact the provided general surgeon and set up a follow-up appointment. Take the prescribed nausea and vomiting medicine as ordered. You also have a lesion on your kidney, follow-up with your primary care doctor or switchboard operator helper for this the lesion was on your CT in 2018. Scripts Ondansetron (ONDANSETRON ODT) 4 Mg Tab.rapdis 1 TAB PO PRN Q6-8HRS, #16 TAB Prov: MARIUSZ OH APRN 01/12/21 MARIUSZ OH APRN Jan 12, 2021 21:44
== END 2021-01-12 22:29 | disposition home or self-care (01) ==
LOC: ER 17:02
DX: K80.20 Calculus of gallbladder without cholecystitis without obstruction (principal); R11.2 Nausea with vomiting, unspecified; G43.909 Migraine, unspecified, not intractable, without status migrainosus; F17.200 Nicotine dependence, unspecified, uncomplicated; Z87.442 Personal history of urinary calculi
CPT/HCPCS: 36415; 74177; 80053; 80307; 80329; 81001; 83690; 85025; 87086; 96365; 96366; 96375; 96376; 99285; G0480; J2405; J3411; J3490; J7030; Q9967